=== PATIENT | female | born 1970 | race Caucasian/White ===

== ENCOUNTER → 2024-06-22 | Outpatient (CLI) | payer BC, SELFPAY ==
[2024-06-22 18:04] LABS: Absolute Lymphocyte Count 2.12 X10^3/uL (0.83-4.51); Absolute Neutrophil Count 6.6 X10^3/uL (2.0-7.7); Basophil# 0.05 X10^3/uL; Basophil% 0.5 % (0-1); Eosinophil# 0.11 X10^3/uL; Eosinophils% 1.1 % (0-5); Hematocrit 51.4 % (37-47); Hemoglobin 16.7 g/dL (12.0-15.0); Lymphocyte # 2.12 X10^3/ul (0.83-4.51); Lymphocyte % 21.3 % (19-41); Mean Corp Hgb Conc 32.5 g/dL (32-36); Mean Corpuscular Hgb 36.7 pg (27.0-32.0); Mean Platelet Vol. 10.9 fl (6.2-12.0); Monocyte# 1.09 X10^3/uL; Monocyte% 10.9 % (0-10); NRBC Flagged by Analyzer 0 % (0-5); Neutrophil # 6.56 X10^3/uL (2.7-7.7); Neutrophil % 65.8 % (47-70); Platelet Count 222 K/mm3 (150-450); RBC Distribution Width CV 13.7 % (11.6-14.6); RBC Distribution Width SD 58.3 fl (35.1-43.9); Red Blood Count 4.55 M/mm3 (4.2-5.4)
[2024-06-22 18:23] LABS: ALB/GLOB Ratio 0.9 RATIO (0.9-2.4); AST(SGOT) 23 U/L (15-37); Alanine Aminotransfer ALT/SGPT 13 U/L (13-56); Albumin, Serum 3.6 g/dL (3.2-5.0); Alkaline Phosphatase 92 U/L (45-117); Anion Gap 9 (5-15); BUN 6 mg/dL (7-18); BUN/Creat Ratio 7.9 RATIO (10-20); Calcium,Total 9.5 mg/dL (8.5-10.1); Chloride 103 mmol/L (98-107); Cholesterol 224 mg/dL (200); Creatinine, Serum 0.76 mg/dL (0.55-1.02); EST Glomerular Filtration Rate 84 mL/min (>60); Est Glom Filt Rate - Afr Amer 102 mL/min (>60); Globulin 4.1 g/dL (2.2-4.2); Glucose 103 mg/dL (74-106); High Density Lipoprotein 92 mg/dL; Potassium 3.4 mmol/L (3.5-5.1); Protein, Total 7.7 g/dL (6.4-8.2); Sodium Level 136 mmol/L (136-145); Triglycerides 116 mg/dL; Very Low Density Lipoprotein 23 mg/dL (5-40)
== END | disposition home or self-care (01) ==
LOC: BFHLAB 14:36
PROVIDERS: PCP Nurse Practitioner Family; Referring Provider Nurse Practitioner Family; Visit Provider Nurse Practitioner Family
DX: Z00.01 Encounter for general adult medical examination with abnormal findings (principal)
CPT/HCPCS: 36415; 80053; 80061; 85025

== ENCOUNTER 2024-08-21 08:49 | Emergency (ER) | payer BC, SELFPAY ==
[2024-08-21 08:51] VITALS: BP 173/95; PULSE 116; RESP 18; TEMP 36.2; O2SAT 98; BMI 27.8
--- NOTE | 2024-08-21 09:06 | ED.RN ---
pt has an alcohol abuse issue and states she is tired of feeling this way. pt is here with c/o N/V and wanting to get sober.
[2024-08-21 09:47] LABS: Absolute Lymphocyte Count 1.84 X10^3/uL (0.83-4.51); Absolute Neutrophil Count 5.1 X10^3/uL (2.0-7.7); Basophil# 0.05 X10^3/uL; Basophil% 0.6 % (0-1); Eosinophil# 0.22 X10^3/uL; Eosinophils% 2.7 % (0-5); Hematocrit 42.2 % (37-47); Hemoglobin 14.2 g/dL (12.0-15.0); Lymphocyte # 1.84 X10^3/ul (0.83-4.51); Lymphocyte % 22.7 % (19-41); Mean Corp Hgb Conc 33.6 g/dL (32-36); Mean Corpuscular Hgb 35.3 pg (27.0-32.0); Mean Platelet Vol. 9.8 fl (6.2-12.0); Monocyte# 0.86 X10^3/uL; Monocyte% 10.6 % (0-10); NRBC Flagged by Analyzer 0 % (0-5); Neutrophil % 62.9 % (47-70); Platelet Count 245 K/mm3 (150-450); RBC Distribution Width CV 16.4 % (11.6-14.6); RBC Distribution Width SD 63.5 fl (35.1-43.9); Red Blood Count 4.02 M/mm3 (4.2-5.4); White Blood Count 8.1 K/mm3 (4.4-11.0)
[2024-08-21 09:49] VITALS: BP 181/97; PULSE 103; RESP 16; O2SAT 95
[2024-08-21 10:00] VITALS: BP 181/102; PULSE 103; RESP 19; O2SAT 95
[2024-08-21 10:09] LABS: Anion Gap 9 (5-15); BUN 9 mg/dL (7-18); BUN/Creat Ratio 12.7 RATIO (10-20); Calcium,Total 9.3 mg/dL (8.5-10.1); Chloride 99 mmol/L (98-107); Creatinine, Serum 0.71 mg/dL (0.55-1.02); EST Glomerular Filtration Rate 91 mL/min (>60); Est Glom Filt Rate - Afr Amer 110 mL/min (>60); Estimated Creatinine Clearance 73.97 ml/min; Glucose 110 mg/dL (74-106); Potassium 3.3 mmol/L (3.5-5.1); Sodium Level 136 mmol/L (136-145)
[2024-08-21 10:21] LABS: Alcohol, Blood (Medical)-Serum < 3.0 mg/dL
--- NOTE | 2024-08-21 10:25 | EX.ED.DYSGE1 ---
HPI History of Present Illness Chief Complaint: Dizziness Narrative Narrative: Patient is a 53-year-old female who is presenting to the ER today with chief complaint of nausea and vomiting 5 times last evening that started around 11p-12a. Patient drinks 1/5 of vodka daily for the past 15 to 20 years. Patient initially was coming into the ER today because she wanted to be admitted to the hospital for detox and go to rehabilitation. Patient has since changed her mind while she been in the ER for proxy 1 hour. Patient is not suicidal homicidal. Patient admits to alcohol dependence. Patient does work, she sells tile at a store. Patient is not suicidal homicidal. Patient has been speaking to the nurse. There is delay in seeing this patient initially secondary to high volume in the ER, blameless apologies were given to the patient she was very understanding. Patient has not any vomiting since she has been in the ER. Patient has no headache or neck pain. No chest pain or shortness of breath. No abdominal pain, no midepigastric pain, patient has been having nausea and vomiting. PFSH PFSH Home Medications ?Medication ?Instructions ?Recorded ?Last Taken ?Type ondansetron 4 mg disintegrating 4 mg PO Q8H PRN PRN Nausea #10 tabs 08/21/24 Unknown Rx tablet Allergy/AdvReac Type Severity Reaction Status Date / Time No Known Allergies Allergy Verified 08/21/24 08:50 Social History Smoking Status: Current every day smoker tobacco type: cigarettes ROS ROS ED ROS Narrative REVIEW OF SYSTEMS: Unless otherwise stated in this report the patient's positive and negative responses for review of systems for constitutional, eyes, ENT, cardiovascular, respiratory, gastrointestinal, neurological, , musculoskeletal, and integument systems and related systems to the presenting problem are either stated in the history of present illness or were not pertinent or were negative for the symptoms and/or complaints related to the presenting medical problem. EXAM Physical Exam Narrative Exam Narrative: Vital signs reviewed and patient is not hypoxic. Patient is hypertensive, no headache chest pain or shortness of breath. General: The patient appears well and in no apparent distress. Patient is resting comfortably on cart. Not toxic, lethargic, or listless. Skin: Warm, dry, no pallor noted. There is no rash noted. Head: Normocephalic, atraumatic Eye: Normal conjunctiva, no drainage, EOMI. PERRL. Ears, Nose, Mouth, and Throat: oral mucosa is moist. Nares patent. Mouth without vesicles. Cardiovascular: Regular Rate and Rhythm, no murmurs, gallops, or rubs Respiratory: Patient is in no distress, no accessory muscle use, lungs are clear to auscultation, no wheezing, rales or rhonchi Back: non-tender, no CVA tenderness bilaterally to percussion. NO CTLS midline or paraspinal tenderness to palpation. GI: Soft, no midepigastric tenderness to palpation, no peritoneal signs, no flank pain bilateral, no tenderness to palpation, no masses appreciated. No rebound, guarding, or rigidity noted. Musculoskeletal: The patient has full range of motion of all extremities and joints with no difficulty. Patient has no motor, no sensory deficits. Neurological: A&O x4, normal speech, no focal neurological deficits. No tremors, shaking, no acute signs of withdrawal at this time. Psychiatric: Cooperative. patient has no patient missed alcohol dependence, patient states she has never had any type of tremors, shaking, or seizures suicidal homicidal thoughts, from any alcohol withdrawal previously. Const Vital Signs: 08/21/24 08:51 08/21/24 09:49 08/21/24 10:00 Temperature 97.1 F L Temperature Source Oral Pulse Rate 116 H 103 H 103 H Respiratory Rate 18 16 19 H Blood Pressure 173/95 H 181/97 H 181/102 H Blood Pressure Mean 121 125 128 Pulse Ox 98 95 95 Oxygen Delivery Method Room Air Room Air Room Air MDM MDM MDM Narrative Medical decision making narrative: Patient blood pressure was elevated. We discussed at length on checking her blood pressure at drug stores or pharmacies or buying a blood pressure cuff. Patient is to check her blood pressure twice a day if possible for the next 1 to 2 weeks, and if it is consistently greater than 140/90, patient is to follow-up with PCP for possible blood pressure medication if needed. Patient was educated on calling mental health her member services or behavioral services with her [employer] insurance for outpatient or inpatient rehabilitation options and services. Patient does not want to be admitted to the hospital at this time, does not want to go through detox, does not want to be placed in alcohol rehabilitation at this time. Patient not had any nausea vomiting in the ER. Patient be discharged to follow-up. No question at discharge. Patient potassium was 3.3, she was given oral potassium supplement additional with IV Zofran. Patient's discharge paperwork was printed, I did write on the first page of her discharge paperwork to check the blood pressure twice a day for the next 1 to 2 weeks, record the times, and if greater than 140/90, follow-up with PCP. This was told the patient several times and I did hand write this on the front page for discharge paperwork. Lab Data Attestation: I reviewed the patient's lab results. Labs: Laboratory Results - last 24 hr 08/21/24 08/21/24 09:30 10:31 WBC 8.1 RBC 4.02 L Hgb 14.2 Hct 42.2 MCV 105.0 H MCH 35.3 H MCHC 33.6 RDW Std Deviation 63.5 H RDW Coeff of Albino 16.4 H Plt Count 245 MPV 9.8 Immature Gran % (Auto) 0.500 Neut % (Auto) 62.9 Lymph % (Auto) 22.7 [place] % (Auto) 10.6 H Eos % (Auto) 2.7 Baso % (Auto) 0.6 Absolute Neuts (auto) 5.1 Absolute Lymphs (auto) 1.84 Nucleated RBC % 0 Sodium 136 Potassium 3.3 L Chloride 99 Carbon Dioxide 28.0 Anion Gap 9 BUN 9 Creatinine 0.71 Estim Creat Clear Calc 73.97 Est GFR (MDRD) Af Amer 110 Est GFR (MDRD) Non-Af 91 BUN/Creatinine Ratio 12.7 Glucose 110 H Calcium 9.3 Urine Opiates Screen NEGATIVE Urine Methadone Screen NEGATIVE Ur Barbiturates Screen NEGATIVE Ur Phencyclidine Scrn NEGATIVE Ur Amphetamines Screen NEGATIVE MDMA (Ecstasy) Screen NEGATIVE U Benzodiazepines Scrn NEGATIVE Urine Cocaine Screen NEGATIVE U Cannabinoids Screen NEGATIVE Ur Drug Screen Comment Ethyl Alcohol < 3.0 Discharge Plan Triage Chief Complaint: Dizziness Other Complaint: Nausea/Vomiting Substance Abuse ED Provider: Billy Casas Dx/Rx/DC Orders Clinical Impression: Nausea & vomiting, Alcohol dependence Instructions: Social Drinking vs Problem Drinking, Alcoholism Be Part Solution, Alcoholism: Getting Help, Addiction: Getting Help, Hypokalemia Dc, ED Hypokalemia, ED Vomiting (Adult), ED Alcohol Abuse Prescriptions: New ondansetron 4 mg tablet,disintegrating 4 mg PO Q8H PRN PRN (Reason: Nausea) Qty: 10 0RF Stand Alone Forms: ED Work / School Excuse Primary Care Provider: Elsy Shelton Referrals: Elsy Shelton, FINANCIAL AID COUNSELOR-C [Primary Care Provider] - Activity Restrictions/Additional Instructions: Use Zofran ODT as needed for nausea and vomiting. Call your insurance mental health or behavioral health hotline number or the member service number as discussed at bedside for resources for alcohol dependence, rehabilitation, detox. If you have any other acute withdrawal symptoms, or any other acute concerns return back to the ER. You may also work with your PCP on options or outpatient resources for IOP or inpatient alcohol detox, withdrawal, and rehabilitation. Please check your blood pressure once or twice a day, check your blood pressure a day for the next 1 to 2 weeks, record the date and time, do this at a drugstore or grocery store, or buy a blood pressure cuff. If your blood pressure is consistently greater than 140/90, follow-up with PCP for blood pressure medication if indicated. Print Language: Cypriot Disposition Disposition: Home, Self Care
[2024-08-21] MEDS: Potassium Chloride Oral Tablet 20 MEQ 60 MEQ PO (10:46)
[2024-08-21 11:05] LABS: Amphetamine Urine VISTA NEGATIVE (<1000 ng/mL); Barbiturate Urine VISTA NEGATIVE (< 200 ng/mL); Benzodiazepine Urine VISTA NEGATIVE (< 200 ng/mL); Cocaine Urine VISTA NEGATIVE (< 300 ng/mL); Ecstacy Urine VISTA NEGATIVE (< 500 ng/mL); Methadone Urine VISTA NEGATIVE (< 300 ng/mL); PCP Urine VISTA NEGATIVE (< 25 ng/mL); THC Urine VISTA NEGATIVE (< 50 ng/mL); Vista UDS pH Range 6
[2024-08-21 11:52] VITALS: BP 155/91; PULSE 101; RESP 16; TEMP 36.6; O2SAT 98
== END 2024-08-21 11:54 | disposition home or self-care (01) ==
PROVIDERS: Emergency Provider Emergency Medicine; PCP Nurse Practitioner Family; Visit Provider Emergency Medicine
DX: R11.2 Nausea with vomiting, unspecified (principal); F10.20 Alcohol dependence, uncomplicated; R42 Dizziness and giddiness; F17.210 Nicotine dependence, cigarettes, uncomplicated
CPT/HCPCS: 80048; 80307; 82077; 85025; 99284; A4216

== ENCOUNTER 2024-11-09 10:33 | Observation (INO) | payer BC, SELFPAY ==
[2024-11-09] VITALS (7 sets, daily range): BP systolic 154–198; BP diastolic 88–101; PULSE 77–97; RESP 16–19; TEMP 36.6–36.8; O2SAT 96–99; BMI 24.6; BMI 24.5
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
[2024-11-09 11:06] LABS: Absolute Lymphocyte Count 1.83 X10^3/uL (0.83-4.51); Absolute Neutrophil Count 3.8 X10^3/uL (2.0-7.7); Basophil# 0.05 X10^3/uL; Basophil% 0.8 % (0-1); Eosinophil# 0.15 X10^3/uL; Eosinophils% 2.3 % (0-5); Hematocrit 45.4 % (37-47); Hemoglobin 15.3 g/dL (12.0-15.0); Lymphocyte # 1.83 X10^3/ul (0.83-4.51); Lymphocyte % 27.5 % (19-41); Mean Corp Hgb Conc 33.7 g/dL (32-36); Mean Corpuscular Hgb 36.7 pg (27.0-32.0); Mean Corpuscular Volume 108.9 fL (81-99); Mean Platelet Vol. 10.2 fl (6.2-12.0); Monocyte# 0.82 X10^3/uL; Monocyte% 12.3 % (0-10); NRBC Flagged by Analyzer 0 % (0-5); Neutrophil # 3.78 X10^3/uL (2.7-7.7); Neutrophil % 56.8 % (47-70); Platelet Count 229 K/mm3 (150-450); RBC Distribution Width CV 12.2 % (11.6-14.6); RBC Distribution Width SD 49.2 fl (35.1-43.9); Red Blood Count 4.17 M/mm3 (4.2-5.4); White Blood Count 6.7 K/mm3 (4.4-11.0)
[2024-11-09 11:15] LABS: Alcohol, Blood (Medical)-Serum < 3.0 mg/dL
[2024-11-09 11:19] LABS: ALB/GLOB Ratio 0.9 RATIO (0.9-2.4); AST(SGOT) 37 U/L (15-37); Alanine Aminotransfer ALT/SGPT 29 U/L (13-56); Albumin, Serum 3.7 g/dL (3.2-5.0); Alkaline Phosphatase 86 U/L (45-117); Anion Gap 8 (5-15); BUN 8 mg/dL (7-18); BUN/Creat Ratio 11.1 RATIO (10-20); Calcium,Total 9.7 mg/dL (8.5-10.1); Chloride 100 mmol/L (98-107); Creatinine, Serum 0.72 mg/dL (0.55-1.02); EST Glomerular Filtration Rate 89 mL/min (>60); Est Glom Filt Rate - Afr Amer 108 mL/min (>60); Estimated Creatinine Clearance 68.09 ml/min; Globulin 4.3 g/dL (2.2-4.2); Glucose 105 mg/dL (74-106); Potassium 4.1 mmol/L (3.5-5.1); Sodium Level 136 mmol/L (136-145)
[2024-11-09 11:31] LABS: Amphetamine Urine NEGATIVE (<1000 ng/mL); Barbiturate Urine NEGATIVE (< 200 ng/mL); Benzodiazepine Urine NEGATIVE (< 200 ng/mL); Cocaine Urine NEGATIVE (< 300 ng/mL); Ecstacy Urine NEGATIVE (< 500 ng/mL); Methadone Urine NEGATIVE (< 300 ng/mL); Opiates Urine NEGATIVE (< 300 ng/mL); PCP Urine NEGATIVE (< 25 ng/mL); THC Urine NEGATIVE (< 50 ng/mL); Vista UDS pH Range 5
--- NOTE | 2024-11-09 11:32 | PCM.HP.STD ---
HPI - General General Date of Admission: 11/09/24 Date of Service: 11/09/24 Chief Complaint: Alcohol detox HPI Narrative CAMILLA WIN, is a with a history of alcohol use disorder and tobacco use disorder presented [facility] ED for alcohol detox. She reports her birthday was yesterday so she had been drinking heavily Saturday into Saturday and was very hung over yesterday but decided today that she [place] turned over new leaf so she came to the hospital. She endorses drinking 1/5 of vodka a day and has done so for about 20 years. She has had no prior detox, reports that she is feeling little bit shaky and that her legs intermittently are tingly but ROS otherwise negative. Patient denies any substance use including marijuana use, does smoke a pack per day of cigarettes however [facility] Medical History no medical history Home Medications ?Medication ?Instructions ?Recorded ?Last Taken ?Type potassium 95 mg tablet mg PO 11/09/24 Unknown History Allergy/AdvReac Type Severity Reaction Status Date / Time No Known Allergies Allergy Verified 11/09/24 10:34 Family History no significant family his Surgical History no surgical history Social History Smoking Status: Current every day smoker tobacco type: cigarettes ROS ROS Narrative General: Denies fever/chills HENT: Denies headache, denies stuffy nose, denies sore throat EYES: Denies changes in vision Resp: Denies cough, denies shortness of breath Cardiac: Denies chest pain GI: Denies abdominal pain, denies changes in bowel, denies nausea/vomiting : Denies changes in urination Extremity: Denies swelling MSK: Denies weakness Neuro: Reports feet intermittently feel tingly, some generalized shaking Heme: Denies any bleeding or bruising Skin: Denies rashes Psychiatric: Feels she is ready to turn over new leaf Vital Signs Vital Signs Vital Signs: 11/09/24 10:34 Temperature 97.8 F Temperature Source Temporal Pulse Rate 92 Respiratory Rate 16 Blood Pressure 198/101 H Blood Pressure Mean 133 Pulse Ox 98 Oxygen Delivery Method Room Air Weight Weight: 55.338 kg Body Mass Index (BMI) 24.6 Physical Exam Narrative General: Alert, oriented, no apparent distress HEENT: Atraumatic, normocephalic Eyes: Anicteric, normal conjunctiva, extraocular movements grossly intact Neck: Supple Respiratory: Clear to auscultation bilaterally, normal respiratory effort Cardiovascular: Regular rate and rhythm GI: Soft, nontender, nondistended Extremities: No edema Musculoskeletal: Moving all extremities Neuro: No overt focal neurological deficits, mild tremor in outstretched hands Skin: No rashes appreciated Psych: Cooperative Results Lab / Micro Data 11/09/24 10:55 11/09/24 10:55 Labs: Laboratory Results - last 24 hr 11/09/24 10:55: WBC 6.7, RBC 4.17 L, Hgb 15.3 H, Hct 45.4, MCV 108.9 H, MCH 36.7 H, MCHC 33.7, RDW Std Deviation 49.2 H, RDW Coeff of Albino 12.2, Plt Count 229, MPV 10.2, Immature Gran % (Auto) 0.300, Neut % (Auto) 56.8, Lymph % (Auto) 27.5, [place] % (Auto) 12.3 H, Eos % (Auto) 2.3, Baso % (Auto) 0.8, Absolute Neuts (auto) 3.8, Absolute Lymphs (auto) 1.83, Nucleated RBC % 0, Sodium 136, Potassium 4.1, Chloride 100, Carbon Dioxide 28.0, Anion Gap 8, BUN 8, Creatinine 0.72, Estim Creat Clear Calc 68.09, Est GFR (MDRD) Af Amer 108, Est GFR (MDRD) Non-Af 89, BUN/Creatinine Ratio 11.1, Glucose 105, Calcium 9.7, Total Bilirubin 1.00, AST 37, ALT 29, Alkaline Phosphatase 86, Total Protein 8.0, Albumin 3.7, Globulin 4.3 H, Albumin/Globulin Ratio 0.9, Ethyl Alcohol < 3.0 11/09/24 11:10: Urine Opiates Screen NEGATIVE, Urine Methadone Screen NEGATIVE, Ur Barbiturates Screen NEGATIVE, Ur Phencyclidine Scrn NEGATIVE, Ur Amphetamines Screen NEGATIVE, MDMA (Ecstasy) Screen NEGATIVE, U Benzodiazepines Scrn NEGATIVE, Urine Cocaine Screen NEGATIVE, U Cannabinoids Screen NEGATIVE, Ur Drug Screen Comment Assessment & Plan Assessment/Plan (1) Alcohol abuse: PLAN: Plan #Alcohol use disorder - We will begin CIWA every 4 for 24 hours, then every 6 for 24 hours, then every 12 until discharge -Will begin as needed Ativan for CIWA, patient with minimal withdrawal symptoms despite last drink being on the . Given the duration and extent of her use do feel it is reasonable to admit and monitor with CIWA scoring trigger for Ativan, do not think at this time patient needs a full dose phenobarb taper -Gabapentin 300 mg every 8 as needed -Will start Bentyl and hydroxyzine as needed as well as loperamide as needed -Trazodone 100 mg p.o. nightly as needed sleep -Begin thiamine and folic acid supplementation -Zofran as needed for nausea -Case management consult to assist with discharge planning -EtOH 0 -UDS negative #Tobacco use -Advise cessation -Nicotine replacement available if desired #DVT ppx: Low risk, ambulatory Luly Borden MD Charges/Coding Visit Charges Inpatient E&M: 41621 Init Hosp L1
[2024-11-09] MEDS: hydrOXYzine PAM 25 MG Capsule 50 MG PO (15:42)
[2024-11-09] MEDS: traZODone 100 MG Tablet PO (21:15)
[2024-11-09] MEDS: Ibuprofen 600 MG Tablet PO (21:25)
[2024-11-10 03:19] VITALS: BP 147/85; PULSE 98; RESP 16; TEMP 36.8; O2SAT 99
[2024-11-10 08:16] VITALS: BP 133/85; PULSE 85; RESP 16; TEMP 36.4; O2SAT 98
[2024-11-10] MEDS: Thiamine Hydrochloride 100 MG Tablet PO (08:27)
[2024-11-10] MEDS: hydrOXYzine PAM 25 MG Capsule 50 MG PO ×3 (08:27→21:07)
[2024-11-10] MEDS: Folic Acid 1 MG Tablet PO (08:27)
--- NOTE | 2024-11-10 10:53 | ADDICTION ---
Addendum entered by Blaire Lomeli 11/10/24 11:19: Patient screened for Vivitrol. She meets criteria for the Vivitrol shot prior to discharge. Original Note: Met with pt to complete RAMP assessments and discuss d/c planning. Pt reported that she came in with a plan to complete detox and begin therapy with a MIGUELINA counselor at [facility]. Pt identified that she has been drinking for 20 years and is now ready to stop drinking for good. She reports that she is on board with the id recommendations and will go into [facility] for a walk-in assessment once discharged.
[2024-11-10 11:47] VITALS: BP 129/80; PULSE 84; RESP 16; TEMP 36.6; O2SAT 96
--- NOTE | 2024-11-10 13:17 | PCM.PN.HOSP ---
Reason for Visit Reason for Visit: Diagnoses Alcohol abuse, uncomplicated (11/09/24) Subjective Subjective Doing fairly well today, does not sleep well last night still bit tired but otherwise no new or acute complaints Objective Data Objective Data Vital Signs: Vital Signs Temp Pulse Resp BP Pulse Ox O2 Del Method 97.8 F 84 16 129/80 H 96 Room Air 11/10/24 11:47 11/10/24 11:47 11/10/24 11:47 11/10/24 11:47 11/10/24 11:47 11/10/24 11:47 Oxygen Delivery Method Room Air Weight: 55.3 kg Body Mass Index (BMI) 24.5 Intake & Output: Intake and Output for Last 24 Hours 11/08/24 11/09/24 11/10/24 23:59 23:59 23:59 Intake Total 400 / 400 350 / 350 Balance 400 / 400 350 / 350 Lab / Micro Data 11/09/24 10:55 11/09/24 10:55 Physical Exam Narrative General: Alert, oriented, no apparent distress HEENT: Atraumatic, normocephalic Eyes: Anicteric, normal conjunctiva, extraocular movements grossly intact Neck: Supple Respiratory: Clear to auscultation bilaterally, normal respiratory effort Cardiovascular: Regular rate and rhythm GI: Soft, nontender, nondistended Extremities: No edema Musculoskeletal: Moving all extremities Neuro: No overt focal neurological deficits Skin: No rashes appreciated Psych: Cooperative Assessment & Plan Assessment/Plan (1) Alcohol abuse: PLAN: Plan #Alcohol use disorder - We will begin CIWA every 4 for 24 hours, then every 6 for 24 hours, then every 12 until discharge -Will begin as needed Ativan for CIWA, patient with minimal withdrawal symptoms despite last drink being on the . Given the duration and extent of her use do feel it is reasonable to admit and monitor with CIWA scoring trigger for Ativan, do not think at this time patient needs a full dose phenobarb taper -Gabapentin 300 mg every 8 as needed -Will start Bentyl and hydroxyzine as needed as well as loperamide as needed -Trazodone 100 mg p.o. nightly as needed sleep -Begin thiamine and folic acid supplementation -Zofran as needed for nausea -Case management consult to assist with discharge planning -EtOH 0 -UDS negative -11/10: Patient not scoring on CIWA, overall doing well, if she continues to be stable tomorrow can likely DC, patient meets criteria for Vivitrol shot prior to discharge #Tobacco use -Advise cessation -Nicotine replacement available if desired #DVT ppx: Low risk, ambulatory Luly Borden MD Charges/Coding Visit Charges Inpatient E&M: 58717 Subs Hosp L1
[2024-11-10 13:49] VITALS: BP 133/86; PULSE 91; RESP 16; TEMP 36.3; O2SAT 97
[2024-11-10 16:31] VITALS: BP 149/80; PULSE 88; RESP 18; TEMP 36.6; O2SAT 98
[2024-11-10 20:40] VITALS: BP 142/88; PULSE 93; RESP 16; TEMP 36.6; O2SAT 96
[2024-11-10] MEDS: Gabapentin 300 MG Capsule PO (20:43)
[2024-11-11 02:09] VITALS: BP 145/92; PULSE 91; RESP 16; TEMP 36.5; O2SAT 100
--- NOTE | 2024-11-11 08:10 | PCM.DC.SUM ---
Providers Date of Admission: 11/09/24 Date of Discharge: 11/11/24 Primary Care Physician: ALY Gore Reason For Visit: ETOH DETOX Diagnosis Discharge Diagnosis (1) Alcohol abuse: Status: Acute Code(s): F10.10 - Alcohol abuse, uncomplicated Medications at Discharge Home Medications potassium 95 mg tablet mg PO 11/09/24 Hospital Course Operations None Procedures None Summary of Care Provided Minutes Spent on Discharge: 24 Hospital Course: Ms. Hardin is a 54-year-old white female who presented to the emergency department [facility] on 11/09/2019 for requesting alcohol detox. Patient has a robust history of alcohol use disorder as well as tobacco abuse and reported that her birthday was a day prior to presentation and had been drinking heavily Saturday into Saturday. She was very hung over the day prior to presentation but decided that she wanted to turn over a new leaf so she presented to the emergency department requesting detox. She reported that she drinks about 1/5 of vodka daily and has done so for about 20 years. She has never been through detox previously. On presentation she felt a bit shaky and indicated her legs felt intermittently tingling but had no other withdrawal symptoms. Patient denied any other substance abuse other than nicotine. She was admitted to the hospital for detox from alcohol and placed on CIWA with as needed Ativan. She never hit the trigger for any other medications and was not on phenobarb during her hospitalization. She was on as needed medication for symptom management which she did not require any. She remained asymptomatic on the and into the . She was seen by addiction medicine and outpatient follow-up was arranged. She was also felt to be appropriate for Vivitrol use and was given injection with outpatient follow-up orders at the the time of discharge. She is to follow-up with addiction as arranged and given appropriate information. Patient was discharged home in stable condition on 11/11/2024. I have encouraged her to follow-up with her primary care physician within the next 2 weeks. Discharge diagnoses: Alcohol use disorder/alcohol abuse Tobacco abuse Physical Exam Const alert, oriented x3, no apparent distress, average body habitus, no limitations and well nourished Constitutional Narrative: Middle-aged, white female, sitting up in bed, addiction medicine at bedside, appears comfortable, nontoxic, very pleasant, no signs of overt withdrawal General Appearance: cooperative, comfortable, well kempt and well developed Orientation / Consciousness: awake, oriented to person, oriented to place and oriented to time Exam Limitations: no limitations HEENT normocephalic, head/scalp atraumatic and hearing grossly normal bilaterally Resp normal respiratory effort, no retractions, no use of accessory muscles and clear to auscultation bilaterally Auscultation: Negative for rales, rhonchi or wheezes Cardio regular rate, regular rhythm, S1 normal heart sound, S2 normal heart sound, no murmurs, no rub, no gallops and no clicks GI normal to inspection, nondistended, normoactive bowel sounds, soft to palpation and non-tender Extremity no clubbing, cyanosis or edema Extremity Narrative: 2+ pedal pulses Skin no rashes or lesions noted, no wounds and skin turgor normal Neuro oriented x3, moves all extremities and no focal motor deficits Speech: speech normal Psych affect normal Psych Narrative: Pleasant, eye contact is good, patient interacts appropriately Weight / BMI Weight Weight: 55.3 kg Body Mass Index (BMI) 24.5 ABG / Lab / Microbiology Data 11/09/24 10:55 11/09/24 10:55 D/C Instructions Discharge Diet: No restrictions Discharge Activity: Return to Normal Activity DC O2, CPAP, BIPAP Needs Home O2 Discharge instructions: No Meaningful Use Info Meaningful Use Meaningful Use Diagnoses (Choose all that apply): None applicable Ischemic Stroke Statin Dosing Therapy Reference: STATIN DOSE THERAPY REFERENCE: * Patients > 75 years receive moderate or high dose statin therapy. * Patients 75 years or YOUNGER should receive HIGH intensity statin dose unless contraindicated. You will be required to document reason for non-treatment if statin daily dose does not meet guidelines. HIGH DOSE STATIN THERAPY DAILY Atorvastatin > than or = to 40 mg Rosuvastatin > than or = to 20 mg Amlodipine + Atorvastatin > than or = to 2.5/40 mg Ezetimibe + Simvastatin 10/80 mg Simvastatin 80mg Discharge Plan Admission Admit Date/Time: 11/09/24 11:31 Primary Reason for Your Visit: EtOH detox Attending Provider: Katelyn John Primary Care Provider: Elsy Shelton Consulting Providers: Luly Borden Instructions Additional Instructions / Restrictions: 1. Please follow-up with addiction medicine as directed while hospitalized Discharge Orders/Prescriptions Prescriptions: Continued potassium 95 mg tablet PO Referrals / Follow Up: Elsy Shelton, [employer] [Primary Care Provider] - Within 2 Weeks Disposition Disposition (needs filled in before D/C Order can be placed): Home, Self Care Charges/Coding Visit Charges Inpatient E&M: 57515 Disch Hosp
[2024-11-11 08:15] VITALS: BP 131/78; PULSE 79; RESP 16; TEMP 36.6; O2SAT 97
[2024-11-11] MEDS: Folic Acid 1 MG Tablet PO (08:20)
[2024-11-11] MEDS: Thiamine Hydrochloride 100 MG Tablet PO (08:20)
--- NOTE | 2024-11-11 11:29 | PHA.DC.MR.R ---
Pharmacy [place] Med Reconciliation Pharmacy Service has performed discharge medication reconciliation for this patient. The patient's discharge medication list was reviewed for discrepancies and discrepancies were resolved. Medications at Discharge Home Medications potassium 95 mg tablet mg PO 11/09/24
[2024-11-11] MEDS: Naltrexone Microspheres 380 MG SYRINGE IM (12:32)
[2024-11-11] MEDS: Vivitrol Administration Needles 1 EACH MC (12:33)
[2024-11-11] MEDS: Vivitrol ID Card 1 EACH MC (12:34)
[2024-11-11 12:37] VITALS: BP 145/95; PULSE 89; RESP 18; TEMP 37.1; O2SAT 97
--- OUTSIDE RECORDS SUMMARY | 2025-04-06 08:44 | XMS RPT_ITS | CCD ---
Author Organization [place] [email or web address] Results Test Name Value Interpretation Reference Range Facil itrut CNOVon 12-14-2020 CNOV Office Visit (EXPM[facility] ) CRISTIN HARDIN ([id number]) 1970 F Date Time Provider Department 12/14/20 7:00 PM DAPHNE GUTIERREZ) [facility] During your visit today, we recorded the following information about you: Temperature Pulse Blood pressure 98 degrees 86/minute 146/79 Daphne Gutierrez PA-C 12/14/2020 7:54 PM Addendum This note was created using [employer]. Subjective Cristin Hardin is a 50 year old female. Patient presents to clinic with pain and a rash. She states that the pain started in her back on the left side below her shoulder blades roughly 2 weeks ago. Today, she states that the pain is also just below her left breast. The rash started about 1-1 1/2 weeks ago, however; she does state that she has had recent lesions most recently within the past 72 hours. Her only PMH is shingles when she was 16 years of age. Her allergy is to bees. The history is provided by the patient. Rash This is a new problem. The current episode started 1 to 4 weeks ago. The problem has been gradually worsening since onset. The affected locations include the abdomen. The rash is characterized by redness, itchiness, pain and swelling. She was exposed to nothing. Pertinent negatives include no diarrhea, fatigue, fever, shortness of breath, sore throat or vomiting. Past treatments include analgesics. The treatment provided mild relief. Review of Systems Constitutional: Negative for fatigue and fever. HENT: Negative for sore throat. Eyes: Negative. Respiratory: Negative for chest tightness, shortness of breath, wheezing and stridor. Cardiovascular: Negative for chest pain. Gastrointestinal: Negative for diarrhea and vomiting. Endocrine: Negative. Genitourinary: Negative. Musculoskeletal: Negative for arthralgias, back pain, joint swelling, myalgias, neck pain and neck stiffness. Skin: Positive for rash. Neurological: Negative. Hematological: Negative. Psychiatric/Behavioral : Negative. Objective BP 146/79 (BP Site: Right Arm, BP Position: Sitting, BP Cuff Size: Large Adult) Pulse 86 Temp 36.7 ?C (98 ?F) (Temporal) Physical Exam Constitutional: Appearance: Normal appearance. HENT: Mouth/Throat: Mouth: Mucous membranes are moist. Cardiovascular: Rate and Rhythm: Normal rate. Chest: Breasts: Left: Skin change and tenderness present. Musculoskeletal: Cervical back: Normal range of motion. Skin: General: Skin is warm. Findings: Rash present. Rash is vesicular. Comments: Positive for vesicular rash cropped on erythematous base without drainage Neurological: General: No focal deficit present. Mental Status: She is alert. Psychiatric: Mood and Affect: Mood normal. Behavior: Behavior normal. Assessment and Plan ASSESSMENT/PLAN: 1. Herpes zoster without complication - ICD9: 053.9, ICD10: B02.9 - Valtrex as directed - CONSULT TO PCP - Follow up as needed Teaching Provider Physician Executive Secretary Note of Personal Involvement of Care I have personally seen and examined the patient and performed the medical decision-making components. I have reviewed the Advanced Practice Registered Nurse (BAR GAUGER AND LUBRICATOR TENDER) student's documentation and verified the findings in the note as written. Any additions or changes are noted in bold/italics. MERYL Gracia PA-C 12/14/2020 7:34 PM Signed Valtrex as directed Follow up as needed EXPRESS CARE PATIENT INFO SHINGLES Shingles (Herpes Zoster) What is shingles? Shingles is an infection caused by the same virus that causes chickenpox. This virus is called varicella zoster. You cannot develop shingles unless you have had a previous infection of chickenpox (usually as a child). Shingles is also called herpes zoster. This infection is most common in people over 60 years of age, but young people can have it as well. How does it occur? After you recover from chickenpox, the chickenpox virus is not destroyed. It moves back to the roots of your nerve cells (near the spinal cord) and becomes inactive (dormant). Later, if the virus is reactivated, the symptoms are called shingles. What exactly causes the reactivation of the virus is not known. A weakened immune system seems to allow reactivation of the virus. Advancing age and chronic use of cortisone-type drugs may trigger shingles. The virus may also become active again after the skin is injured or sunburned. Emotional stress seems to be a common trigger as well. What are the symptoms? The first sign of shingles is often burning, sharp pain, tingling, or numbness in or under your skin on one side of your body or face. The most common site is the back or upper abdomen. You may have severe itching or aching. You also may feel tired and ill with fever, chills, headache, and upset stomach. After several days, you will notice a rash of small, clear, fluid-filled blisters on reddene (more content not included)... Normal [facility] Progress note 12-14-2020 Note Date & Type Note Facility 12-14-2020 Note HNO ID: [id number] Author: Daphne Zuniga) Susan Service: ? Author Type: Physician Executive Secretary Type: Progress Notes Filed: 12/14/2020 7:54 PM Note Text: This note was created using [employer]. Subjective Cristin Hardin is a 50 year old female. Patient presents to clinic with pain and a rash. She states that the pain started in her back on the left side below her shoulder blades roughly 2 weeks ago. Today, she states that the pain is also just below her left breast. The rash started about 1-1 1/2 weeks ago, however; she does state that she has had recent lesions most recently within the past 72 hours. Her only PMH is shingles when she was 16 years of age. Her allergy is to bees. The history is provided by the patient. Rash This is a new problem. The current episode started 1 to 4 weeks ago. The problem has been gradually worsening since onset. The affected locations include the abdomen. The rash is characterized by redness, itchiness, pain and swelling. She was exposed to nothing. Pertinent negatives include no diarrhea, fatigue, fever, shortness of breath, sore throat or vomiting. Past treatments include analgesics. The treatment provided mild relief. Review of Systems Constitutional: Negative for fatigue and fever. HENT: Negative for sore throat. Eyes: Negative. Respiratory: Negative for chest tightness, shortness of breath, wheezing and stridor. Cardiovascular: Negative for chest pain. Gastrointestinal: Negative for diarrhea and vomiting. Endocrine: Negative. Genitourinary: Negative. Musculoskeletal: Negative for arthralgias, back pain, joint swelling, myalgias, neck pain and neck stiffness. Skin: Positive for rash. Neurological: Negative. Hematological: Negative. Psychiatric/Behavioral: Negative. Objective BP 146/79 (BP Site: Right Arm, BP Position: Sitting, BP Cuff Size: Large Adult) Pulse 86 Temp 36.7 ?C (98 ?F) (Temporal) Physical Exam Constitutional: Appearance: Normal appearance. HENT: Mouth/Throat: Mouth: Mucous membranes are moist. Cardiovascular: Rate and Rhythm: Normal rate. Chest: Breasts: Left: Skin change and tenderness present. Musculoskeletal: Cervical back: Normal range of motion. Skin: General: Skin is warm. Findings: Rash present. Rash is vesicular. Comments: Positive for vesicular rash cropped on erythematous base without drainage Neurological: General: No focal deficit present. Mental Status: She is alert. Psychiatric: Mood and Affect: Mood normal. Behavior: Behavior normal. Assessment and Plan ASSESSMENT/PLAN: 1. Herpes zoster without complication - ICD9: 053.9, ICD10: B02.9 - Valtrex as directed - CONSULT TO PCP - Follow up as needed Teaching Provider Physician Executive Secretary Note of Personal Involvement of Care I have personally seen and examined the patient and performed the medical decision-making components. I have reviewed the Advanced Practice Registered Nurse (BAR GAUGER AND LUBRICATOR TENDER) student's documentation and verified the findings in the note as written. Any additions or changes are noted in bold/italics. Daphne Gutierrez PA-C [facility] Summary Purpose Family History No Family History Records Found Advance Directives No Advanced Directives Records Found Additional Source Comments INFORMATION SOURCE (unrecogn ized section and content) DATE CREATED AUTHOR 10/15/2021 [facility] FOR RECORDS PERTAINING TO PATIENTS WHO ARE OR HAVE BEEN ENROLLED IN A CHEMICAL DEPENDENCY/SUBSTANCEABUSE PROGRAM, SOME INFORMATION MAY BE OMITTED. This clinical summary was aggregated from multiple sources. Caution should be exercised in using it in the provision of clinical care. This summary normalizes information from multiple sources, and as a consequence, information in this document may materially change the coding, format and clinical context of patient data. In addition, data may be omitted in some cases. CLINICAL DECISIONS SHOULD BE BASED ON THE PRIMARY CLINICAL RECORDS. [facility] [employer] [facility]. provides no warranty or guarantee of the accuracy or completeness of information in this document.
== END 2024-11-11 13:02 | disposition home or self-care (01) | DRG 897 ==
LOC: ED 11:22 → MS3 11-10 15:10
PROVIDERS: Admitting Provider Internal Medicine; Emergency Provider Emergency Medicine; PCP Nurse Practitioner Family; Visit Provider Internal Medicine
DX: F10.10 Alcohol abuse, uncomplicated (principal); F17.210 Nicotine dependence, cigarettes, uncomplicated; R25.9 Unspecified abnormal involuntary movements; Y90.0 Blood alcohol level of less than 20 mg/100 ml
CPT/HCPCS: 80053; 80307; 82077; 85025; 96372; 99221; 99284; A4216; G0378